=== PATIENT | female | born 1940 | race Caucasian/White ===

== ENCOUNTER 2025-03-17 00:49 | Inpatient (IN) | payer MEDICARE, SELFPAY ==
[2025-03-16 19:22] VITALS: BP 113/73
[2025-03-16 19:36] LABS: % Eosinophils 0.3 % (0-6); % Lymphocytes 22.3 % (20.5-51.1); % Monocytes 15.1 % (1.7-9.3); % Neutrophils 62.3 % (42.2-75.2); Absolute Lymphocytes 0.7 10^3/uL (1.2-3.4); Absolute Monocytes 0.4 10^3/uL (0.1-0.6); Absolute Neutrophils 1.8 10^3/uL (1.4-6.5); Hematocrit 40.6 % (37.0-47.0); Hemoglobin 14.6 g/dL (12.0-16.0); Mean Corpuscular Hgb 31.9 pg (27.0-31.0); Mean Corpuscular Volume 88.8 fL (81.0-99.0); Mean Platelet Volume 9.5 fL (7.4-10.4); Nucleated Red Blood Cells % 0 %; Platelet Count 171 10^3/uL (130-400); Red Blood Cell Count 4.57 10^6/uL (4.20-5.40); Red Cell Dist. Width 12.5 % (11.5-14.5); White Blood Cell Count 2.9 10^3/uL (4.8-10.8)
[2025-03-16 20:05] LABS: ALT (SGPT) 22 U/L (0-35); AST (SGOT) 38 U/L (14-36); Albumin 4.6 g/dl (3.5-5.0); Alkaline Phosphatase 54 U/L (38-126); Blood Urea Nitrogen 20 mg/dl (7-17); Calcium 9.1 mg/dl (8.4-10.2); Carbon Dioxide 21 mmol/L (22-30); Chloride 96 mmol/L (98-107); Glucose 99 mg/dl (70-99); Potassium 4.2 mmol/L (3.5-5.1); Sodium 126 mmol/L (135-145); Total Bilirubin 0.7 mg/dl (0.2-1.3); Total Protein 6.8 g/dl (6.3-8.2); eGFR > 60.00
[2025-03-16 21:37] VITALS: BP 132/96
[2025-03-16 21:51] VITALS: BMI 21.2
[2025-03-16 21:56] VITALS: BP 132/96
[2025-03-16 22:00] VITALS: BP 124/72
--- NOTE | 2025-03-16 22:33 | ED.GENMED ---
History of Present Illness
General
Chief Complaint: Cold/Flu/URI Symptoms
Time Seen by Provider: 03/16/25 22:22
History of Present Illness
History of Present Illness:
TIME OF INITIAL EVALUATION
- 10:35 PM
REVIEW OF OLD RECORDS
- The patient has history of dementia
CHIEF COMPLAINT(S)
Difficulty swallowing and fatigue.
HISTORY OF PRESENT ILLNESS
The patient is an 84-year-old female with a history of dementia and remains otherwise active with daily walking. She presents with symptoms that began approximately one week ago, including an inability to clear her throat, difficulty in consuming
food and water over the past two days, and excessive sleepiness. Vital signs reveal a low sodium level at 126 mEq/L and a slightly reduced white blood cell count. The patient also experiences weakness and instability, though there is no reported
history of diuretic use or previous low sodium levels. Past imaging did not indicate pneumonia. On auscultation, minor crackling is noted in the lungs, but blood oxygen levels are normal. 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
as a swimmer, though remaining within a non-worrisome rhythm.
PHYSICAL EXAM
- Lungs: Minor crackling with breath sounds at bases, oxygen levels are normal.
- Cardiovascular: Heart rate is slightly low but not concerning; rhythm is normal.
-General: Appears in no distress
-HEENT: Dry oral mucosa
-Cardiovascular: Regular rate and rhythm
-Abdomen: Soft and nontender with no peritoneal signs
-Neurologic: The patient has evidence of dementia, not oriented to month or place, strength is equal in all extremities
-Extremities: Moves all extremities equally, no tenderness, no edema
-Psychiatric: Very limited historian, poor insight and judgment
PLAN
Nursing notes reviewed and vital signs reviewed. Initiate IV fluids to address potential dehydration and low sodium levels. Plan to obtain a urine sample to further evaluate electrolyte balance.
DIFFERENTIAL DIAGNOSIS
The Differential Diagnosis includes, in no particular order and is not limited to:
- Hyponatremia
- Viral upper respiratory infection
- Gastroesophageal reflux disease
- Dysphagia
- Dehydration
- Depression or anxiety with somatic symptoms
- Aspiration pneumonia
- Dementia-related eating difficulties
- Cardiac arrhythmia
- Medication side effects
RADIOLOGY
- Chest x-ray by my read shows no definite pneumonia
EKG
- Sinus 47, normal axis, no acute ST normality
LABS
- White count 2.9, hemoglobin normal, sodium 126
UPDATE
-SUMMARY OF ENCOUNTER
The patient, an 84-year-old female with a history of dementia, was evaluated in the emergency department due to difficulty swallowing, fatigue, and new onset of low sodium levels (hyponatremia). She also presented with trouble eating and excessive
sleepiness, possibly related to electrolyte imbalance and dehydration. Given her condition, she requires further inpatient management.
DISPOSITION
The decision was made to admit the patient for further management of newly identified hyponatremia and associated symptoms. Dr. Vincent Salgado was consulted for admission.
INDEPENDENT REVIEW OF LABS AND INTERPRETATION OF TESTS
My independent review of the laboratory findings indicates a sodium level of 126 mEq/L, consistent with hyponatremia, impacting the decision for hospital admission.
MEDICAL DECISION MAKING
1. Number & Complexity of Problems: Chronic conditions affecting care include dementia. Differential diagnoses considered include hyponatremia and dehydration.
2. Data Reviewed:
- Labs: Sodium level, consistent with newly identified hyponatremia.
3. Risk: Consideration was made for hospital admission due to the complexity and risk of potential deterioration in the context of electrolyte imbalance.
PATHOLOGIES TO CONSIDER
Sepsis (fever + hypotension + AMS), Electrolyte imbalance due to risk of hyponatremia. Vital signs are not consistent with sepsis and she is afebrile here.
Past History
Past History
ED Past Medical History: Hypercholesterolemia, Other (OA-uses cane while awaiting L DELPHINE) and Other (Dementia)
Social History
Tobacco: Non-smoker
Alcohol: Occasional
Drug: None
Personal: Partner
Living: with family
Employment: Retired
Family History
Family History: Negative Diabetes, Hypertension or CAD
Phy Exam
Physical Exam
Physical Exam:
See HPI
Course
Orders/Labs/Results
Orders:
Orders
03/16/25 19:26
EKG [Electrocardiogram (*1)] Urgent
Reason for Study: Fatigue / Weakness
EKG- Treatment ONCE
03/16/25 19:30
Complete Blood Count/With Diff Urgent
Comprehensive Metabolic Panel Urgent
Serum Osmolality Urgent
Comment: ADD ON
03/16/25 22:03
CXR2 [CR Chest - 2 Views ] Urgent
Comment:
Reason For Exam: cough
03/16/25 22:34
Add On- LAB Urgent
Tests Added?: serum osm
03/16/25 22:35
Osmolality, Random Urine Urgent
Urine Sodium Urgent
03/16/25 22:50
0.9% Sodium Chloride 1000 ml [Nss] 1,000 ml IV BOLUS
03/17/25 00:01
COVID-19 Antigen Urgent
Source: Nasal Swab
Influenza A+B Rapid Molecular Urgent
ADELIA Source: Nasal Swab
Specimen Description:
Abnormal Lab Results
03/16/25
19:30
WBC 2.9 L 10^3/uL
(4.8-10.8)
MCH 31.9 H pg
(27.0-31.0)
Absolute Lymphs (auto) 0.7 L 10^3/uL
(1.2-3.4)
Monocytes % 15.1 H %
(1.7-9.3)
Sodium 126 L mmol/L
(135-145)
Chloride 96 L mmol/L
(98-107)
Carbon Dioxide 21 L mmol/L
(22-30)
BUN 20 H mg/dl
(7-17)
Serum Osmolality 270 L mOsm/kg
(275-300)
AST 38 H U/L
(14-36)
03/16/25 19:30
03/16/25 19:30
Vital Signs
Initial and Last Documented VS:
Initial Vital Signs
Temp Pulse Resp BP Pulse Ox
36.3 C 59 22 113/73 98
03/16/25 19:22 03/16/25 19:22 03/16/25 19:22 03/16/25 19:22 03/16/25 19:22
Last Documented Vital Signs
Temp Pulse Resp BP Pulse Ox
36.4 C 46 22 144/75 98
03/16/25 21:56 03/16/25 23:45 03/16/25 23:15 03/16/25 23:00 03/16/25 23:45
*Pulse Oximetry
SaO2: 100
Oxygen Mode of Delivery: Room air
Patient hypoxic: no
*Night Warehouse Selector Interpretation
Rate: bradycardiac
Interpretation: abnormal
Heart Rate: 46
Rhythm: sinus
*Critical Care Note
Total Time (30-74mins, 75-104mins- exclusive of procedures): Not Applicable
ED Attending Note
-
Portions of this chart may have been created with voice recognition software.� Occasional wrong word or��sound alike� substitutions may have occurred due to the inherent limitations of voice recognition software.
Discharge Plan
Departure
Patient Disposition: Admit
Date of Disposition: 03/17/25
Time of Disposition: 00:02
Presentation/result/management discussed w/ accepting MD/DO: Hospitalist
Discharge Problem:
Acute hyponatremia
Prescriptions:
No Action
cyanocobalamin (vitamin B-12) 1,000 MCG tablet
1,000 mcg PO DAILY
rosuvastatin 10 MG tablet
10 mg PO DAILY
memantine 21 MG capsule,sprinkle,ER 24hr
21 mg PO HS
aspirin 81 MG tablet,chewable
81 mg PO DAILY 0RF
lisinopril 5 MG tablet
5 mg PO DAILY Qty: 30 3RF
ibuprofen 400 mg tablet
400 mg PO Q8H PRN (Reason: fever or pain) Qty: 20 0RF
alprazolam 0.5 mg Tablet
0.5 mg PO DAILY PRN (Reason: anxiety)
acetaminophen [Tylenol] 325 mg Capsule
650 mg PO QID PRN (Reason: pain or fever)
Referrals:
Vivi Otto MD [Family Provider, Family Practice]
Interventions
Interventions:
*Risk Screen - Suicide Last Done: 03/16/25 19:22
*General Assessment Last Done: 03/16/25 19:22
*Neglect/Abuse Screening Last Done: 03/16/25 19:22
*ED- Fall Risk Assessment Last Done: 03/16/25 21:58
*ED COVID-19 Vaccine History Last Done: 03/16/25 21:58
ED- Pulmonary Assessment Last Done: 03/16/25 21:55
Discharge Date and Time
Print Language: BELARUSIAN
[2025-03-16 23:00] VITALS: BP 144/75
[2025-03-16] MEDS: NSS 1000 IV (23:26)
[2025-03-16 23:58] LABS: Osmolality Serum 270 mOsm/kg (275-300)
[2025-03-17] VITALS (8 sets, daily range): BP systolic 121–168; BP diastolic 72–99; PULSE 53–71; O2SAT 99–100; BMI 21.0
--- NOTE | 2025-03-17 00:17 | HPS.HSE ---
Family Physician
-
Family Physician: Vivi Otto
Chief Complaint
-
weakness
History of Present Illness
This is a 84-year-old female with past medical history significant for hypertension, hyperlipidemia, dementia, presenting to the emergency department with essentially failure to thrive.
Family reports that she has been having decreased oral intake for the last 1 week. She apparently is having to clear her throat and is coughing but nonproductive weight. She has not had any fevers or chills. She is not vomiting. She denies any
pain with swallowing. She denies history of dysphagia. Over the last 2 days she has had a almost no food or water intake and has been having excessive sleepiness. The significant other denies any urinary symptoms. She has not had any diarrhea.
She denies any abdominal pain. There is been no rash. She has no known sick contact. There is been no recent travel. Patient has no history of thyroid disease. She has no recent medication changes. She apparently had a stumble and fall without
striking her head recently. No focal deficits.
In the emergency department she was afebrile, blood pressure was 140/70 with a pulse of 46 and she was satting 98% on room air. Tmax was 97.6. ECG shows sinus bradycardia at 47 (family reports history of longstanding bradycardia). She had a chest
x-ray which showed no acute infiltrates.
CBC shows a white count of 2.9 but otherwise unremarkable. Electrolytes notable for sodium of 126 but otherwise unremarkable, BUN and creatinine were normal. LFTs normal.
COVID test positive.
Medical History
Past Medical History
Past Medical History: Reports Dementia, HTN and Hypercholesterolemia
Past Surgical History: Reports Other
Social History
Tobacco: Non-smoker
Alcohol: None
Drug: None
Personal: Partner
Living: With Family
Employment: Retired
Family History
Family History: Not pertinent
Allergies / Home Medications
Allergies reflects when Allergies were last updated in [facility].
Home Medications with original date entered in [facility]
Allergy/Medication List:
Allergies
Allergy/AdvReac Type Severity Reaction Status Date / Time
No Known Allergies Allergy Verified 03/16/25 21:52
Home Medications
cyanocobalamin (vitamin B-12) 1,000 mcg tablet 1,000 mcg PO DAILY 08/14/18
memantine 21 mg capsule sprinkle,extended release 24hr 21 mg PO HS 08/14/18
rosuvastatin 10 mg tablet 10 mg PO DAILY 08/14/18
aspirin 81 mg chewable tablet 81 mg PO DAILY 08/15/18
lisinopril 5 mg tablet 5 mg PO DAILY ##30 08/15/18
ibuprofen 400 mg tablet 400 mg PO Q8H PRN fever or pain #20 tabs 01/29/23
acetaminophen 325 mg capsule 650 mg PO QID PRN pain or fever 03/16/25
alprazolam 0.5 mg tablet 0.5 mg PO DAILY PRN anxiety 03/16/25
Review of Systems
-
Unable to obtain full review of systems at this time due to: Dementia
History Source: Family
Constitutional: Reports Sleep Disturbance
EENT: Reports No Symptoms
Respiratory: Reports No Symptoms
Cardiac: Reports No Symptoms
Abdomen/GI: Reports Anorexia
: Reports No Symptoms
Musculoskeletal: Reports No Symptoms
Skin: Reports No Symptoms
Neurological: Reports No Symptoms
Endocrine: Reports No Symptoms
Hematologic/Lymphatic: Reports No Symptoms
Psych: Reports No Symptoms
Physical Exam
Vital Signs
Vital Signs
Temp Pulse Resp BP Pulse Ox
97.6 F 46 22 144/75 98
03/16/25 21:56 03/16/25 23:45 03/16/25 23:15 03/16/25 23:00 03/16/25 23:45
Physical Exam
General: Well Developed, No Apparent Distress and Poor Appetite
HEENT: NormoCephalic, Moist mucous membranes, Atraumatic, PERRLA, Denio Conjunctivae and Neck Nontender; No Pharyngeal Erythema, Neck Mass or Oxygen
Respiratory: Clear
Cardiac: S1/S2 and Bradycardia; No Murmur, Rub or Peripheral Edema
GI: Soft, Non Tender, Non Distended and Normal Bowel Sounds; No Organomegaly
Rectal: Deferred by Provider
Musculoskeletal: No Clubbing, No Cyanosis and No Edema
Skin: No Rash
Neuro: Nonfocal/grossly intact
Laboratory Results
-
03/16/25 19:30
03/16/25 19:30
Laboratory Results
Total Bilirubin 0.7 mg/dl (0.2-1.3) 03/16/25 19:30
AST 38 U/L (14-36) H 03/16/25 19:30
ALT 22 U/L (0-35) 03/16/25 19:30
Alkaline Phosphatase 54 U/L (38-126) 03/16/25 19:30
Data Reviewed
-
Diagnostic Radiology: Image Personally Visualized and interpreted and Report Reviewed by me
Medical Tests (Nuc Med, Echo, EKG etc): Image Personally Visualized and interpreted
Lab Data: Labs Reviewed by me
Old Records: Reviewed
Impression/Plan
-
IMPRESSION:
84-year-old with history of dementia which appears to be stable for the last 5 years presented to the emergency department with failure to thrive. She has had 1 week of throat clearing and some mild nonproductive cough without fevers chills or
shortness of breath and over the last 2 days has had minimal p.o. intake, increased somnolence and lethargy. Bradycardic in the ED, low sodium and normotensive. She is afebrile. Chest x-ray is clear. There is no leukocytosis (there is
leukopenia). There is apparent dementia on exam and signs of dehydration but otherwise well-appearing and in no acute distress. She has mechanical fall/stumble few days ago but she displays no focal neurological deficits and family thinks that her
mental acuity is at baseline.
PLAN:
COVID 19 Infection - + COVID. symptoms began 1 week ago and currently w/o respiratory symptoms
- admit to med/surg obs
- given duration of infection, minimal symptoms and no significant risk-factors/commorbidities, no indication for specific viral tx
- supportive measures as below
Hyponatremia - Suspect hypovolemic given history. She has no offending medications/diuretics.
- s/p 1.5 L NS in ED
- continue at 100ml/hr
- urine lytes pending
- repeat serum sodium after IV bolus
- orthostatic v/s
- checking tsh/cortisol
Weakness/lethargy - COVID infection likely etiology, differential include uti, hypothyroid, cva. No evidence of primary cardiac process. Known bradycardia w/o heart block
- check u/a, ucx
- tsh, cortisol
- patient has been on memantine for years, no change
- PT eval
DVT PPX - lovenox sq
Code status - Full Code
[2025-03-17] MEDS: NSS 500 IV (00:22)
[2025-03-17 00:34] LABS: COVID-19 Antigen Positive (Negative)
[2025-03-17] MEDS: NSS (PRESERVATIVE FREE) 0.25 ML IV ×2 (00:35→19:43)
[2025-03-17] MEDS: ATIVAN 0.5 MG IV ×2 (00:36→19:43)
[2025-03-17] MEDS: HALDOL 1 MG IM (02:10)
[2025-03-17 02:16] LABS: Cortisol, Random 4.8 ug/dl; TSH Reflex To Free T4 5.75 uIU/ml (0.47-4.68)
[2025-03-17] MEDS: NSS 1000 IV (02:56)
--- NOTE | 2025-03-17 04:48 | TRANSFER ---
Pt arrived to 3W from ED via stretcher and pulled over to bed. Pt covid + and placed on droplet precautions. Pt AAOx1 disoriented to place and time. BP 142/78, P 87, O2 97 on Room air, temp 97.4. Bed alarm placed. Attempted to orient Pt to room,
call kowalski within reach, plan of car ongoing.
--- NOTE | 2025-03-17 04:52 | PTCARENOTE ---
Hx dementia, Pt confused, disoriented to place and time. Pt repeatedly attempts to jump out of bed and has Hx of recent fall at home. Pt uncooperative, and combative. Attempts to redirect and orient unsuccessful. MANAGER SYSTEMS notified and B/L wrist
restraint, 4 side rails, IM haldol ordered. Restraints placed, Q2 neuro/ vascular checks preformed.
--- NOTE | 2025-03-17 04:58 | PTCARENOTE ---
Pt has increased confusion and uncooperative. Tries to climb out of bed despite wrist restraints. OIL HEATER OPERATOR notified and order for 4 point soft restraints placed.
[2025-03-17 06:33] LABS: Hematocrit 36.4 % (37.0-47.0); Hemoglobin 12.9 g/dL (12.0-16.0); Mean Corp Hgb Conc. 35.4 g/dL (33.0-37.0); Mean Corpuscular Hgb 31.8 pg (27.0-31.0); Mean Corpuscular Volume 89.7 fL (81.0-99.0); Mean Platelet Volume 9.5 fL (7.4-10.4); Platelet Count 123 10^3/uL (130-400); Red Blood Cell Count 4.06 10^6/uL (4.20-5.40); Red Cell Dist. Width 12.1 % (11.5-14.5); White Blood Cell Count 2.8 10^3/uL (4.8-10.8)
[2025-03-17 06:34] LABS: Ammonia < 9 umol/L (9-30)
[2025-03-17 07:12] LABS: Blood Urea Nitrogen 15 mg/dl (7-17); Calcium 8.1 mg/dl (8.4-10.2); Carbon Dioxide 19 mmol/L (22-30); Chloride 102 mmol/L (98-107); Estimated Creatinine Clearance 61 ml/min; Glucose 102 mg/dl (70-99); Potassium 3.3 mmol/L (3.5-5.1); Sodium 131 mmol/L (135-145); eGFR > 60.00
[2025-03-17 07:37] LABS: Cortisol, Random 21.2 ug/dl; TSH 7.23 uIU/ml (0.47-4.68)
[2025-03-17] MEDS: LOW STRENGTH ASPIRIN 81 MG PO (08:19)
[2025-03-17] MEDS: VITAMIN B-12 1000 MCG PO (08:19)
[2025-03-17] MEDS: ZESTRIL 5 MG PO (08:19)
[2025-03-17] MEDS: CRESTOR 10 MG PO (08:20)
[2025-03-17] MEDS: NAMENDA 10 MG PO ×2 (08:20→20:35)
--- NOTE | 2025-03-17 13:10 | CM ---
Esperanza admitted via ED; Covid+. She lives with her significant other in a 2 story home with 1 step to enter. Bedroom is on the 2nd floor, bathrooms on both floors.
Esperanza reports that she is totally independent with adls and uses no dme; reports that her SO can provide assistance as needed at home.
PT kandial today recommends SNF vs. home pending progress.
Plan: CM to follow to coordinate all discharge planning needs as identified through hospital stay.
PCP: Fam
Pharm: [facility] in [place]
[2025-03-17] MEDS: KCL 40 MEQ PO (15:23)
[2025-03-17] MEDS: XANAX 0.5 MG PO (15:23)
[2025-03-17] MEDS: ATIVAN 0.5 MG PO ×2 (16:58→23:37)
[2025-03-17] MEDS: LOVENOX 40 MG SC (16:59)
--- NOTE | 2025-03-17 21:47 | PTCARENOTE ---
Pt found in hallway, outside of patient's room, agitated at change of shift. Pt placed back in room and unable to reorient. SERVICE CENTER APPRAISER made aware. Restraint order renewed and stat dose of IV ativan ordered and administered. Reassessed pt and found to be
calm and resting. Scheduled medication administered without issues. Assisted pt OOB to toilet and placed back in bed. Pt unsteady during ambulation. Restraint remains in place for protective intervention. Bed alarm in use.
[2025-03-18 06:36] LABS: Hematocrit 38.3 % (37.0-47.0); Hemoglobin 13.8 g/dL (12.0-16.0); Mean Corpuscular Hgb 31.7 pg (27.0-31.0); Mean Platelet Volume 9.7 fL (7.4-10.4); Platelet Count 152 10^3/uL (130-400); Red Blood Cell Count 4.35 10^6/uL (4.20-5.40); Red Cell Dist. Width 12.2 % (11.5-14.5); White Blood Cell Count 2.7 10^3/uL (4.8-10.8)
[2025-03-18 07:03] LABS: Blood Urea Nitrogen 8 mg/dl (7-17); Carbon Dioxide 25 mmol/L (22-30); Chloride 101 mmol/L (98-107); Estimated Creatinine Clearance 61 ml/min; Glucose 98 mg/dl (70-99); Potassium 3.9 mmol/L (3.5-5.1); Sodium 131 mmol/L (135-145); eGFR > 60.00
[2025-03-18 07:10] VITALS: BP 153/84
[2025-03-18] MEDS: CRESTOR 10 MG PO (08:29)
[2025-03-18] MEDS: VITAMIN B-12 1000 MCG PO (08:29)
[2025-03-18] MEDS: LOW STRENGTH ASPIRIN 81 MG PO (08:30)
[2025-03-18] MEDS: NAMENDA 10 MG PO (08:30)
[2025-03-18] MEDS: ZESTRIL 5 MG PO (08:30)
--- NOTE | 2025-03-18 11:32 | W.PN.HOSP.TC ---
Today's Communication/Plan
-
DC
Assessment / Plan
Assessment / Plan
IMPRESSION:
84-year-old with history of dementia which appears to be stable for the last 5 years presented to the emergency department with failure to thrive. She has had 1 week of throat clearing and some mild nonproductive cough without fevers chills or
shortness of breath and over the last 2 days has had minimal p.o. intake, increased somnolence and lethargy. Bradycardic in the ED, low sodium and normotensive. She is afebrile. Chest x-ray is clear. There is no leukocytosis (there is
leukopenia). There is apparent dementia on exam and signs of dehydration but otherwise well-appearing and in no acute distress. She has mechanical fall/stumble few days ago but she displays no focal neurological deficits and family thinks that her
mental acuity is at baseline.
PLAN:
COVID 19 Infection - + COVID. symptoms began 1 week ago and currently w/o respiratory symptoms
- Chest x-ray without pneumonia
- given duration of infection, minimal symptoms and no significant risk-factors/commorbidities, no indication for specific viral tx
- supportive measures as below
- No fever noted. Hemodynamically stable. Not hypoxic.
Hyponatremia - Suspect hypovolemic given history. She has no offending medications/diuretics.
- s/p IV fluids with improved sodium.
-
Weakness/lethargy - COVID infection likely etiology
- PT eval suggest SNF versus home. Follow-up with PT recommendations from today and started discharge plan.
Dementia with agitation suspected behavioral disturbances. Patient needed Ativan yesterday.
Today she is confused but without agitation.
Continue constant reorientation and supportive care for now.
Elevated TSH
In view of acute illness I would repeated in 2 to 4 weeks and if persistently elevated then evaluate for hypothyroidism
DVT PPX - lovenox sq
Code status - Full Code
Medically stable for discharge home today.
DW son and updated clinicals and dc plan.
Anticipated Discharge: Today
Subjective/Interval History
-
Date of Service: March 18, 2025
Confusion better than yesterday.
Calmer. Remains confused.
Patient got help from the bed to the bathroom by tech without much difficulty. She is steady on her feet.
I watched the transfer from the bathroom to the bedroom and I see no instability.
Once in the bed she is calm and comfortable but confused. Not oriented. No agitation noted.
Denies any sore throat or shortness of breath. Denies any nausea vomiting. She did have something to eat but not much.
Objective Data
-
Labs:
Laboratory Results
03/18/25
06:01
WBC 2.7 L
Hgb 13.8
Hct 38.3
Plt Count 152 D
Sodium 131 L
Potassium 3.9
Chloride 101
Carbon Dioxide 25
BUN 8
Creatinine 0.5 L
Glucose 98
Calcium 9.0
Vital Signs:
Vital Signs
Temp Pulse Resp BP Pulse Ox
97.0 F 60 18 153/84 97
03/18/25 07:10 03/18/25 08:30 03/18/25 07:10 03/18/25 08:30 03/18/25 07:10
I&O
03/17/25 03/18/25 03/19/25
06:59 06:59 06:59
Intake Total 480 / 480 960 / 960
Balance 480 / 480 960 / 960
Review of Systems
-
Unable to obtain full review of systems at this time due to: Other (Cognitively impaired)
Physical Exam
-
General: Comfortable
HEENT: Moist Mucous Membranes
Respiratory: Clear to Auscultation
Cardiac: Regular Rhythm and S1/S2; Negative Tachycardic
GI: Soft
Neuro: Awake, Alert and Oriented (self only)
Psych: Calm and Confused; Negative Agitated
Data Reviewed
-
Labs: Labs Reviewed by me
[2025-03-18 14:05] VITALS: BP 133/71; PULSE 59; O2SAT 96
[2025-03-18 14:06] VITALS: BP 133/71; PULSE 59; O2SAT 96
[2025-03-18 14:30] VITALS: BP 133/71
--- NOTE | 2025-03-18 14:37 | CM ---
RACHEL met with pt (sleeping at the time) and her SO, Jono Barahona. Pt is cleared for discharge to home today; [facility] recommended and Jono chose [facility] for services. RACHEL contacted pt's son, Jean, to make him aware of discharge to home today with [facility]
services.
Plan: Discharge to home today with [facility] to f/u to coordinate first visit.
[facility]N
--- NOTE | 2025-03-18 14:59 | VNURNOTE ---
Called primary contact, son Ricardo. He requested I call sig other. Attempted to speak with patient's sig other Desmond. Started to explain VN frequency and that [facility] will contact them prior to visit. Sig other concerned that he needs some advanced
notice due to 'social obligations.' Attempted to explain homebound criteria. Sig other rushed off phone and requested to be called tomorrow.
--- NOTE | 2025-03-19 11:11 | VNURNOTE ---
Home Health Liaison spoke with patient's sig other Desmond to discuss [facility] nurse/therapy, visits, schedule and homebound status. Sig other is agreeable and understands that visits at home will be 2-3 x per week to assess and teach medical management.
Sig other is aware that [facility] will contact them for start of care in 1-2 days after discharge from .
[facility] referral completed in [facility].
--- NOTE | 2025-03-19 15:16 | W.DCSUMMARY ---
Discharge Summary
Discharge Data
Date of Admission: 03/17/25
Date of Discharge: 03/18/25
-
Pending Results: No
Hospital Course
Primary diagnosis:
Acute COVID-19 infection
Hyponatremia suspected secondary to hypovolemia
Weakness/lethargy suspected secondary to COVID-19 infection
Dementia with agitation and behavioral disturbances
Elevated TSH
Secondary diagnosis:
Dementia
Hospital course:
Patient presented with weakness and lethargy and noted to have COVID-19 infection and hyponatremia.
Her symptoms were ongoing for more than a week and felt not a candidate for any COVID-19 therapeutics and was treated conservatively.
Her hyponatremia was felt secondary to volume depletion related and was given fluids with improvement in her sodium from 126-131.
While she was getting treatments here she had behavioral disturbances from her dementia needing pharmacotherapy.
When she was improved from her weakness and lethargy and was able to ambulate she was discharged back home.
Consultants on board:
Discharge Plan
-
Patient Disposition: Home with Home Care
Discharge Diagnosis/Procedures: Weakness and fatigue with COVID-19 infection; dementia with behavioral disturbances
Diet: Regular
Activity: As tolerated
Driving Restrictions: No driving
Other Services: VN and PT
Referrals:
Vivi Otto MD [Family Provider, [facility]] - in less than 1 week
Prescriptions:
Continued
cyanocobalamin (vitamin B-12) 1,000 MCG tablet
1,000 mcg PO DAILY
rosuvastatin 10 MG tablet
10 mg PO DAILY
memantine 21 MG capsule,sprinkle,ER 24hr
21 mg PO HS
aspirin 81 MG tablet,chewable
81 mg PO DAILY 0RF
lisinopril 5 MG tablet
5 mg PO DAILY Qty: 30 3RF
ibuprofen 400 mg tablet
400 mg PO Q8H PRN (Reason: fever or pain) Qty: 20 0RF
alprazolam 0.5 mg Tablet
0.5 mg PO DAILY PRN (Reason: anxiety)
acetaminophen 325 mg Capsule
650 mg PO QID PRN (Reason: pain or fever)
Discharge Orders:
Discharge Patient (As Directed); Ordered 03/18/25
Ordered By: Jarrell Olsen
Discharge Date and Time
Discharge Date/Time: 03/18/25 15:25
Print Language: MARSHALLESE
== END 2025-03-18 15:25 | disposition home health service (06) | DRG 178 ==
LOC: 3 WEST ACU 00:49
PROVIDERS: Emergency Medicine; ADMITTING PHYSICIAN Internal Medicine; ATTENDING PHYSICIAN Internal Medicine; EMERGENCY PHYSICIAN Emergency Medicine; FAMILY PHYSICIAN Family Medicine
DX: U07.1 COVID-19 (principal); E87.1 Hypo-osmolality and hyponatremia; Z11.52 Encounter for screening for COVID-19; R62.7 Adult failure to thrive; E78.00 Pure hypercholesterolemia, unspecified; Z68.21 Body mass index [BMI] 21.0-21.9, adult
CPT/HCPCS: 51798; 71046; 80048; 80053; 82140; 82533; 83930; 84439; 84443; 85025; 85027; 87070; 87502; 87811; 93005; 96360; 97163; 97167; 97530; 97535; 99285